=== PATIENT | female | born 1955 | race Caucasian/White ===

== ENCOUNTER 2017-10-24 07:42 | Emergency (ER) | payer OTHER ==
[~2017-10-24] VITALS: Ht 170.2 cm; Wt 79.4 kg
[2017-10-24] MEDS ORDERED: SYNTHROID75 MCG (08:03)
[2017-10-24] MEDS ORDERED: PREVACID15 MG (08:04)
== END 2017-10-24 13:27 | disposition home or self-care (01) ==
LOC: ER 07:42
DX: M62.838 Other muscle spasm (principal)